=== PATIENT | male | born 1980 | race Caucasian/White ===

== ENCOUNTER 2017-04-05 07:53 | Emergency (ER) | payer BC ==
[~2017-04-05] VITALS: Ht 172.7 cm; Wt 68.0 kg
[2017-04-05] MEDS ORDERED: KEFLEX500 M1 PO (08:27)
[2017-04-05] MEDS ORDERED: Motrin,Rufen800 MG PO (08:27)
== END 2017-04-05 08:49 | disposition home or self-care (01) ==
LOC: ED 07:53
DX: K02.9 Dental caries, unspecified (principal); F17.200 Nicotine dependence, unspecified, uncomplicated

== ENCOUNTER 2018-10-05 20:09 | Emergency (ER) | payer OTHER ==
[~2018-10-05] VITALS: Ht 172.7 cm; Wt 68.0 kg
[~2018-10-05 20:09] MED LIST: KEFLEX500 M1 PO; Motrin,Rufen800 MG PO
[2018-10-05] MEDS ORDERED: CLINDAMYCIN HC300 MG PO (20:23)
[2018-10-05] MEDS ORDERED: IBU800 MG PO (20:23)
== END 2018-10-05 20:33 | disposition home or self-care (01) ==
LOC: ED 20:09
DX: K04.7 Periapical abscess without sinus (principal)

== ENCOUNTER 2019-05-02 18:36 | Emergency (ER) | payer SELFPAY ==
[~2019-05-02] VITALS: Wt 70.3 kg
[~2019-05-02 18:36] MED LIST changes: +CLINDAMYCIN HC300 MG PO; +IBU800 MG PO
== END 2019-05-02 20:37 | disposition home or self-care (01) ==
LOC: ED 18:36
DX: M76.62 Achilles tendinitis, left leg (principal); Z79.2 Long term (current) use of antibiotics; Z79.899 Other long term (current) drug therapy

== ENCOUNTER → 2021-01-12 | Outpatient (CLI) | payer OTHER | END | disposition home or self-care (01) | LOC: CT 15:00 | PROVIDERS: ATTEND Nurse Practitioner Family | DX: K40.90 Unilateral inguinal hernia, without obstruction or gangrene, not specified as recurrent (principal) ==

== ENCOUNTER → 2022-12-08 | Outpatient (CLI) | payer OTHER | END | disposition home or self-care (01) | LOC: US 16:53 | PROVIDERS: ATTEND Nurse Practitioner Family | DX: N50.3 Cyst of epididymis (principal); N50.811 Right testicular pain ==

== ENCOUNTER 2023-12-10 11:32 | Emergency (ER) | payer OTHER ==
[~2023-12-10] VITALS: Ht 172.7 cm; Wt 72.6 kg
[2023-12-10] MEDS ORDERED: Acetaminophen/Hydrocodone HP 10/325 PO ONE (13:00)
[2023-12-10] MEDS ORDERED: AMOXICILLIN875 MG PO (13:02)
[2023-12-10] MEDS ORDERED: AMOXICILLIN 500 MG CAP PO ONE (13:05)
== END 2023-12-10 13:28 | disposition home or self-care (01) ==
LOC: ED 11:32
DX: K04.7 Periapical abscess without sinus (principal)

== ENCOUNTER 2025-05-21 18:47 | Emergency (ER) | payer OTHER ==
[~2025-05-21] VITALS: Ht 172.7 cm; Wt 72.6 kg
[~2025-05-21 18:47] MED LIST changes: +AMOXICILLIN875 MG PO
[2025-05-21] MEDS ORDERED: FLUOXETINE HCL20 M2 PO (18:58)
[2025-05-21] MEDS ORDERED: TRAZODONE50 MG PO (18:59)
[2025-05-21] MEDS ORDERED: ATORVASTATIN CA20 M1 PO (18:59)
[2025-05-21] MEDS ORDERED: MELOXICAM15 MG PO (18:59)
[2025-05-21] MEDS ORDERED: diphenhydrAMINE hydrochloride 50 MG/ML VIAL IV ONE (19:15)
[2025-05-21] MEDS ORDERED: SODIUM CHLORIDE 0.9% 1,000 ML IV ONE (19:15)
[2025-05-21] MEDS ORDERED: Metoclopramide Hydrochloride 10 MG/2 ML VIAL IV ONE (19:15)
[2025-05-21] MEDS ORDERED: IOHEXOL 300 MG/ML 100 ML VIAL IV ONE (19:20)
[2025-05-21 19:34] LABS: BASO # 0.1 10*3/uL (0.0-0.1); BASO % 0.9 % (0.0-1.0); EOS # 0.5 10*3/uL (0.0-0.4); EOS % 3.8 % (1.0-4.0); MEAN CELL VOLUME 90.4 fl (80.0-94.0); MEAN CORPUSCULAR HGB 30.6 pg (27.0-31.0); MEAN PLATELET VOLUME 10.6 fl (9.6-12.3); MONO # 1.0 10*3/uL (0.1-1.0); MONO % 6.9 % (3.0-9.0); NEUT # 8.5 10*3/uL (2.3-7.9); NEUT % 62.1 % (47.0-73.0); NUCLEATED RED BLOOD CELL 0.0 % (0.0-0.0); NUCLEATED RED BLOOD CELL 0.0 10*3/uL (0.0-0.0); PLATELET COUNT AUTOMATED 254 10*3/uL (130-400); RED CELL DISTRI WIDTH 12.6 % (0-14.5)
[2025-05-21 19:53] LABS: BUN 16 mg/dl (9-23); SGPT/ALT 18 U/L (5-49)
[2025-05-21] MEDS ORDERED: REGLAN10 M1 PO (21:57)
[2025-05-21] MEDS ORDERED: LOPERAMIDE HCL2 MG PO (21:57)
== END 2025-05-21 22:22 | disposition home or self-care (01) ==
LOC: ED 18:47
PROVIDERS: Internal Medicine
DX: K52.9 Noninfective gastroenteritis and colitis, unspecified (principal); R11.0 Nausea; R10.9 Unspecified abdominal pain